=== PATIENT | male | born 1985 | race Caucasian/White ===

== ENCOUNTER 2019-11-09 10:05 | Outpatient (CLI) | payer BC ==
--- NOTE | 2019-11-09 11:20 | ULT ---
Exam: Testicular ultrasound HISTORY: Hematospermia. Bilateral testicular pain. COMPARISON: None TECHNIQUE: Sagittal and transverse imaging of the left and right hemiscrotum are performed. Testicula r Doppler is performed with grayscale, color-flow, Doppler imaging and spectral waveform analysis. FINDINGS: Right hemiscrotum: Testicle: Homogeneous echotexture. No intratesticular masses. Right testicle measurements: 3.6 x 4.3 x 2.3 cm Right epididymis: Normal echotexture. Right epididymis measurements: 0.9 x 0.9 cm Hydrocele: None Left hemiscrotum: Left testicle: Homogeneous echotexture. No intratesticular masses. Left testicle measurements: 2.8 x 4.3 x 2.1 cm Left epididymis: Normal echotexture. Left epididymis measurements:0.8 x 1.0 cm Hydrocele: None Testicular Doppler: There is symmetric vascular flow to the left and right testicle. IMPRESSION: Normal testicular ultrasound.
== END 2019-11-09 10:06 | disposition home or self-care (01) ==
LOC: SCSULT 10:05
PROVIDERS: ATTEND Family Medicine
DX: R36.1 Hematospermia (principal)
CPT/HCPCS: 76870; 93976

== ENCOUNTER 2022-08-21 07:52 | Outpatient (CLI) | payer BC | END 2022-08-21 07:53 | disposition home or self-care (01) | LOC: BICRAD 07:52 | PROVIDERS: ATTEND General Practice | DX: R07.81 Pleurodynia (principal) ==